=== PATIENT | female | born 1960 | race Caucasian/White ===

== ENCOUNTER 2020-11-11 04:20 | Emergency (ER) | payer BC, SELFPAY ==
[2020-11-11 04:31] VITALS: BP 145/92; PULSE 70; RESP 17; TEMP 36.6; O2SAT 98
[2020-11-11 05:01] LABS: Add Urine Microscopic? YES; Appearance Urine Cloudy (Clear); Bacteria Urine Trace /hpf; Bilirubin Urine Negative (Negative); Blood Urine 3+ (Negative); Color Urine Yellow (Yellow); Glucose Urine UA Negative (Negative); Ketones Urine Negative (Negative); Leukocyte Esterase Ur 3+ LEU/UL (Negative); Mucus Urine Rare /lpf; Nitrate Urine Negative (Negative); Protein Urine 1+ mg/dL (Negative); RBC Urine 21-50 /hpf (0-2); Specific Grav Ur 1.005 (1.001-1.035); Squamous Epithelial Cell Urine Rare /hpf (Few); Urobilinogen Urine Negative mg/dL (<2.0); WBC Clumps Urine Present /HPF; WBC Urine >75 /hpf
[2020-11-11] MEDS: CIPROFLOXACIN 500 MG TAB PO (05:45)
--- NOTE | 2020-11-11 06:18 | ED.ABDPAIN ---
HPI - Abdominal Pain General Chief Complaint: Abdominal Pain Stated Complaint: I think I have a UTI Time Seen by Provider: 11/11/20 04:31 History of Present Illness HPI narrative: Patient is a 60-year-old female who presents ER with concerns for UTI. Reports yesterday she began having lower abdominal pressure. Today the pressure is intensified. It is associated with pain with urination. She also has pain going into her right flank. No fevers or chills or sweats. No nausea or vomiting. Was encouraged to come here by family for further evaluation. Related Data Home Medications Medication Instructions Recorded Confirmed albuterol sulfate INHALATION 11/11/20 Allergies Allergy/AdvReac Type Severity Reaction Status Date / Time clarithromycin Allergy Mild Unknown Verified 11/11/20 06:16 Sulfa (Sulfonamide Allergy Mild Unknown Verified 11/11/20 06:16 Antibiotics) Review of Systems Review of Systems: All systems reviewed & are unremarkable except as noted in HPI and below Constitutional: Constitutional: Denies chills, Denies fever(s) and Denies weakness Gastrointestinal: Gastrointestinal: Reports abdominal pain, Denies diarrhea, Denies nausea and Denies vomiting Genitourinary: Genitourinary: Reports nocturia, Reports dysuria, Reports flank pain and Denies urinary incontinence Musculoskeletal: Musculoskeletal: Denies back pain and Denies muscle cramps PMFSH Past Medical History Medical History (Updated 11/11/20 @ 06:56 by Vishnu Hanson MD) Melanoma Migraine headache Surgical History Surgical History (Updated 11/11/20 @ 06:56 by Vishnu Hanson MD) History of appendectomy History of cholecystectomy History of hysterectomy History of tonsillectomy Exam Narrative: GENERAL: Well-appearing, well-nourished, and in no acute distress. HEAD: Normocephalic, atraumatic. CHEST: Clear to auscultation. No respiratory distress. HEART: Regular rate and rhythm. Normal peripheral pulses. EXTREMITIES: Normal range of motion. No edema. NEURO: Alert and oriented x3. PSYCH: Normal mood and affect. Course Course Emergency Course: Patient resting comfortably. Informed results. Discharge home. Vital Signs Vital signs: Vital Signs Temperature 97.8 F 11/11/20 04:31 Pulse Rate 70 11/11/20 04:31 Respiratory Rate 17 11/11/20 04:31 Blood Pressure 145/92 H 11/11/20 04:31 Pulse Oximetry 98 11/11/20 04:31 Temperature 97.8 F 11/11/20 04:31 Pulse Rate 70 11/11/20 04:31 Respiratory Rate 17 11/11/20 04:31 Blood Pressure 145/92 H 11/11/20 04:31 Pulse Oximetry 98 11/11/20 04:31 MDM - Abdominal Pain Lab Data Labs: Lab Results 11/11/20 Range/Units 04:46 Urine Color Yellow (Yellow) Urine Appearance Cloudy H (Clear) Urine pH 6.0 (5.0-9.0) Ur Specific [place] 1.005 (1.001-1.035) Urine Protein 1+ H (Negative) mg/dL Urine Glucose (UA) Negative (Negative) mg/dL Urine Ketones Negative (Negative) mg/dL Ur Blood (Man) 3+ H (Negative) Urine Nitrate Negative (Negative) Urine Bilirubin Negative (Negative) Urine Urobilinogen Negative (<2.0) mg/dL Leukocyte Esterase Rfl 3+ H (Negative) SANDEEP/UL Urine RBC 21-50 H (0-2) /hpf Urine WBC >75 H /hpf Urine WBC Clumps Present H (None) /HPF Ur Squamous Epith Cells Rare (Few) /hpf Urine Bacteria Trace /hpf Urine Mucus Rare /lpf Discharge Plan Discharge Clinical Impression: Urinary tract infection Patient Disposition: Home, Self-Care Condition: Stable Instructions: Antibiotic Form, Urinary Tract Infection in Women (ED) Additional Instructions: Return the ER if you have fever over 100.4 ?F, you have increased pain in your flank, you cannot keep down medication or food, you have additional concerns. You have a urinary tract infection that is likely developing into a kidney infection. Prescriptions: New ciprofloxacin HCl [Cipro] 500 mg tablet 500 mg PO Q12H Qty: 14 R
== END 2020-11-11 06:30 | disposition home or self-care (01) ==
PROVIDERS: Emergency Provider Emergency Medicine; PCP Internal Medicine
DX: N39.0 Urinary tract infection, site not specified (principal); Z85.820 Personal history of malignant melanoma of skin
CPT/HCPCS: 81001; 87077; 87086; 87088; 87186; 99283; A9270

== ENCOUNTER 2023-07-19 19:45 | Emergency (ER) | payer BC, SELFPAY ==
[2023-07-19 19:49] VITALS: BP 139/77; PULSE 89; RESP 18; TEMP 36.4; O2SAT 96
[2023-07-20] MEDS: ACETAMINOPHEN 500 MG TABLET 1000 MG PO (00:48)
[2023-07-20] MEDS: KETOROLAC 30 MG/ML VIAL (*BKC) IM (00:48)
[2023-07-20] MEDS: diazePAM INJ (*CRX) 10 MG/2 ML SYRINGE 5 MG IM (00:48)
--- NOTE | 2023-07-20 01:07 | ED.GENADULT ---
HPI - General Adult General Chief complaint: Unspecified Stated complaint: left jaw swelling/pain Time Seen by Provider: 07/20/23 00:00 History of Present Illness HPI narrative: This is a 63-year-old female presenting with left jaw pain. Patient says she has been having TMJ discomfort for the last several weeks. She has seen a neurologist and is attempting to get Botox. She has had 1 of her friends who is a physical therapist do a fascial release. However pain has gotten worse. She now she has difficulty opening her mouth. She is speaking without difficulty. She denies fevers chills nausea vomiting or diarrhea. No evidence of dental infection. Patient has not taken anything for pain. Related Data Home Medications Medication Instructions Recorded Confirmed albuterol sulfate 90 mcg/actuation inhalation 11/11/20 aerosol inhaler Allergies Allergy/AdvReac Type Severity Reaction Status Date / Time clarithromycin Allergy Mild Unknown Verified 07/19/23 23:45 Sulfa (Sulfonamide Allergy Mild Unknown Verified 07/19/23 23:45 Antibiotics) [facility] Past Medical History Medical History Melanoma Migraine headache Surgical History Surgical History History of appendectomy History of cholecystectomy History of hysterectomy History of tonsillectomy Exam Narrative: APPEARANCE: No apparent distress. Head: tenderness to palpation over the left TMJ. No clicking or locking with opening or closing of the mouth. Patient is able to mouth to about 2 cm. no swelling or signs of infection of the tooth. EYES: EOMI, NOSE: Atraumatic NECK: Trachea midline RESPIRATORY: No increased rate of breathing CARDIOVASCULAR: RRR, ABDOMINAL: Non-distended MUSCULOSKELETAl: No obvious deformities NEURO: Alert. Moving 4/4 extremities SKIN:: Warm, dry. Normal color PSYCHIATRIC: Normal affect Course Vital Signs Vital signs: Vital Signs Temperature 97.5 F L 07/19/23 19:49 Pulse Rate 89 07/19/23 19:49 Respiratory Rate 18 07/19/23 19:49 Blood Pressure 139/77 07/19/23 19:49 Pulse Oximetry 96 07/19/23 19:49 Temperature 97.5 F L 07/19/23 19:49 Pulse Rate 89 07/19/23 19:49 Respiratory Rate 18 07/19/23 19:49 Blood Pressure 139/77 07/19/23 19:49 Pulse Oximetry 96 07/19/23 19:49 Medical Decision Making MDM Narrative Medical decision making narrative: -Course: 63-year-old female presenting with left jaw pain. patient treated with Toradol Tylenol and a muscle relaxer. Patient is able to eat and drink. She does have some pain on opening of the jaw but has appropriate outpatient follow-up. Patient discharged with return precautions. -DDX includes but is not limited to: TMJ pain, dental pain -Interventions: Toradol, Tylenol, Valium -Shared decision making / Disposition: discharge -RX Motrin Tylenol Robaxin Vital Signs Vital Signs: Vital Signs Temperature 97.5 F L 07/19/23 19:49 Pulse Rate 89 07/19/23 19:49 Respiratory Rate 18 07/19/23 19:49 Blood Pressure 139/77 07/19/23 19:49 Pulse Oximetry 96 07/19/23 19:49 Temperature 97.5 F L 07/19/23 19:49 Pulse Rate 89 07/19/23 19:49 Respiratory Rate 18 07/19/23 19:49 Blood Pressure 139/77 07/19/23 19:49 Pulse Oximetry 96 07/19/23 19:49 Discharge Plan Discharge Clinical Impression: Jaw pain Patient Disposition: Home, Self-Care Condition: Stable Instructions: Antibiotic Form, Temporomandibular Disorder (ED) Additional Instructions: please take Motrin Tylenol and Robaxin for your jaw pain. return to the ED you are unable to swallow liquids, your pain becomes unbearable, you develop fevers or shortness of breath. Prescriptions: No Action albuterol sulfate 90 mcg/actuation HFA aerosol inhaler INHALATION ciprofloxacin HCl [Cipro] 500 mg tablet 500 mg PO Q12H Q
[2023-07-20 01:18] VITALS: BP 134/70; PULSE 80; RESP 18; O2SAT 98
== END 2023-07-20 01:15 | disposition home or self-care (01) ==
PROVIDERS: Emergency Provider Emergency Medicine; PCP Internal Medicine
DX: M26.622 Arthralgia of left temporomandibular joint (principal); Z85.820 Personal history of malignant melanoma of skin; Z90.49 Acquired absence of other specified parts of digestive tract; Z90.710 Acquired absence of both cervix and uterus
CPT/HCPCS: 96372; 99284; A9270; J1885; J3360